=== PATIENT | female | born 1960 | race American Indian/Alaskan Native ===

== ENCOUNTER 2019-01-17 08:15 | Day surgery (SDC) | payer MEDICARE ==
[~2019-01-17 08:15] MED LIST: ceFAZolin/Water 2 GM/20 ML 2 GM/20 ML SYRINGE IV NR
[2019-01-17] MEDS ORDERED: BUPIVACAINE/PF (0.5%) 5 MG/1 ML 30 ML VIAL INFILTRATI ONE ×2 (08:27→13:18)
[2019-01-17] MEDS ORDERED: HEPARIN 10,000 UNITS/10 ML VIAL ONE (08:28)
[2019-01-17] MEDS ORDERED: LIDOCAINE 1%/EPINEPHRINE 1:100,000 VIAL (20 ML) INFILTRATI ONE (08:28)
[2019-01-17] MEDS ORDERED: SODIUM CHLORIDE 0.9% 500 ML 500 ML ONE (08:29)
[2019-01-17] MEDS ORDERED: SODIUM CHLORIDE 0.9% 1000 ML 1,000 ML IV SCH (08:47)
[2019-01-17] MEDS ORDERED: ONDANSETRON 4 MG/2 ML INJ IV PRN (08:50)
[2019-01-17] MEDS ORDERED: fentaNYL 100 MCG/2 ML INJ IV PRN (08:50)
--- NOTE | 2019-01-17 08:53 | Anesthesia Day of Surgery ---
Anesthesia Day of Surgery - Day of Surgery Patient Examined: Yes Patient H&P Reviewed: Yes Patient is NPO: Yes
--- NOTE | 2019-01-17 08:54 | Anesthesia Consultation ---
Anesthesia Consult and Med Hx Date of service: 01/17/19 - Airway Anesthetic Teeth Evaluation: Good ROM Head & Neck: Adequate Mental/Hyoid Distance: Adequate Mallampati Class: Class II Intubation Access Assessment: Good - Pre-Operative Health Status ASA Pre-Surgery Classification: ASA3 Proposed Anesthetic Plan: General - Pulmonary Hx Smoking: No Hx Sleep Apnea: No - Cardiovascular System Hx Hypertension: Yes - Central Nervous System Hx Psychiatric Problems: No - Endocrine Hx Renal Disease: Yes (DIALYSIS WED,WED,WED) Hx End Stage Renal Disease: Yes (DIALYSIS WED,WED,WED) Hx Non-Insulin Dependent Diabetes: Yes - Hematic Hx Anemia: Yes - Other Systems Hx Alcohol Use: No Hx Substance Use: No Hx Cancer: No
[2019-01-17] MEDS ORDERED: MIDAZOLAM 2 MG/2 ML INJ IV NR (09:00)
[2019-01-17] MEDS ORDERED: PROPOFOL 200 MG/20 ML VIAL IV ONE (09:39)
[2019-01-17] MEDS ORDERED: fentaNYL 100 MCG/2 ML INJ ONE (09:39)
[2019-01-17] MEDS ORDERED: MIDAZOLAM 2 MG/2 ML INJ ONE (09:39)
[2019-01-17] MEDS ORDERED: SODIUM CHLORIDE 0.9% IRR 1,000 ML BOTTLE IR ONE (10:02)
[2019-01-17] MEDS ORDERED: HEPARIN 10,000 UNIT/1 ML VIAL IV ONE ×2 (10:02)
[2019-01-17] MEDS ORDERED: HEPARIN 5,000 UNIT/1 ML VIAL ONE (10:04)
[2019-01-17] MEDS ORDERED: HEPARIN 10,000 UNIT/1 ML VIAL ONE (10:04)
--- NOTE | 2019-01-17 11:54 | Fluoroscopy Report ---
FLUOROSCOPY CENTRAL VENOUS DEVICE PLACEMENT HISTORY: Complications dialysis access, Port-A-Cath insertion FINDINGS: 29 seconds of fluoroscopy time was provided by radiology. A single fluoroscopic image of th e right chest is presented. A right IJ permacath has been inserted which terminates in the right atri um. There is no obvious pneumothorax on fluoroscopy. The right lung is well-aerated. Signer Name: David Bender Jr, MD Signed: 01/17/2019 11:49 AM Workstation Name: [id number]
[2019-01-17] MEDS ORDERED: ONDANSETRON 4 MG/2 ML INJ ONE (12:08)
[2019-01-17] MEDS ORDERED: GLYCOPYRROLATE 0.4 MG/2 ML INJ ONE (12:08)
[2019-01-17] MEDS ORDERED: SODIUM CHLORIDE 0.9% 250ML 250 ML ONE (12:16)
[2019-01-17] MEDS ORDERED: SODIUM CHLORIDE 0.9% P/F 10 ML VIAL INFILTRATI ONE (12:35)
[2019-01-17] MEDS ORDERED: rifAMPin 600 MG VIAL IV ONE (12:35)
[2019-01-17] MEDS ORDERED: LIDOCAINE MPF (2%) 20 MG/1 ML VIAL 5 ML ONE (13:10)
--- NOTE | 2019-01-17 13:35 | Short Stay Summary ---
Short Stay Documentation Date of service: 01/17/19 Narrative H&P: See H&P - History H&P: obtained from office - Allergies and Medications Current Medications: Allergies No Known Allergies Allergy (Unverified 01/16/19 11:00) Home Medications Medication Instructions Recorded Confirmed Last Taken Type Cinacalcet HCl [Sensipar] 60 mg PO DAILY 01/16/19 01/16/19 01/16/19 History Lantus VIAL 25 units SQ QHS 01/16/19 01/17/19 01/16/19 21:30 History NIFEdipine [Nifedipine ER] 60 mg PO BID 01/16/19 01/17/19 01/17/19 06:00 History Sucroferric Oxyhydroxide(Nf) 500 mg PO TID 01/16/19 01/16/19 01/16/19 History [Velphoro (Nf)] Zolpidem [Ambien] 10 mg PO HS 01/16/19 01/16/19 01/16/19 History cloNIDine [Catapres] 0.2 mg PO BID 01/16/19 01/17/19 01/17/19 06:00 History Active Medications Fentanyl (Sublimaze) 50 mcg IV Q5MIN PRN PRN Reason: Pain , Severe (7-10) Stop: 01/17/19 22:00 Cefazolin Sodium (Ancef/Sterile Water 2 Gm/20 Ml) 2 gm in 20 mls @ 80 mls/hr IV PREOP NR; Protocol Stop: 01/17/19 23:59 Sodium Chloride (Nacl 0.9% 1000 Ml) 1,000 mls @ 42 mls/hr IV DIRECT LEVI Last Admin: 01/17/19 09:05 Dose: 42 mls/hr Documented by: Midazolam HCl (Versed) 2 mg IV PREOP NR Stop: 01/17/19 23:59 Ondansetron HCl (Zofran) 4 mg IV ONCE PRN PRN Reason: Nausea And Vomiting - Brief post op/procedure progress note Date of procedure: 01/17/19 Pre-op diagnosis: Complications of Dialysis Access Post-op diagnosis: same Procedure: 1. Ultrasound-guided access right internal jugular vein 2. Placement of 23 cm Bard GlidePath Permacath 3. Radiologic Supervision with Interpretation 4. Revision of left arm arteriovenous fistula with interposition 7 mm bovine Artegraft Anesthesia: local, other (LMA) Surgeon: SALAZAR MCGRAW Estimated blood loss: other (250 ml) Pathology: list (left arm AV fistula pseudoaneurysms) Specimen disposition: to lab Condition: stable - Disposition Condition at discharge: Good Disposition: DC- TO HOME OR SELFCARE Short Stay Discharge Plan Activity: other (no heavy lifting with left arm) Wound: remove dressing (okay to remove Chandu bandage in 48 hours) Follow up with: SALAZAR MCGRAW MD [Staff Physician] - 14 Days Prescriptions: HYDROcodone/APAP 7.5-325 [[place] 7.5/325] 1 each PO Q6HR PRN #40 tablet PRN Reason: Pain
--- NOTE | 2019-01-17 13:45 | Operative Report ---
Operative Report Operative Report: Date of procedure: 01/17/2019 Pre-operative diagnosis: Complications of Dialysis Access Post-operative diagnosis: Same Procedure(s): 1. Ultrasound-Guided Access Right Internal Vein 2. Placement of 23 cm GlidePath Permacath 3. Radiologic Supervision with Interpretation 4. Revision of Left Arm Arteriovenous Fistula with Interposition 7 mm Bovine Artegraft Surgeon: Yasir Virgen MD Molecular Pathologist: None Anesthesia: Local/LMA EBL: 250 mL Counts: Correct Complications: None Condition: Stable Findings: Successful placement of right IJ permacath with distal tip in the right atrium and no evidence of pneumothorax. Palpable thrill in left arm AV access at the completion of the case. Specimen: None Indication: The patient is a 58-year-old female with a history of end-stage renal disease who was on hemodialysis through a left arm arteriovenous fistula. She had pseudoaneurysms in the access that had been expanding over time and was in need of revision. She was given the risk, benefits, and alternative procedures and consented to the procedure. Description of Procedure: The patient was brought to the slab lifting supervisor and laid in supine position and his right neck and chest were prepped and draped in normal sterile fashion. Ultrasound was used to identify the right internal jugular vein and the overlying skin and soft tissue was anesthetized with lidocaine. A small stab incision was made and then the access needle was used ultrasound guidance in the right internal jugular vein. An 035 J-wire was advanced to the central venous system under fluoroscopic guidance. The tract was serially dilated up to a 16 Telugu peel-away safety sheath and the inner cannula and wire removed. An exit site on the chest was then chosen and the presumed tunnel was anesthetized with lidocaine. A small stab incision was made on the chest and then the permacath was connected to the tunneler and pulled antegrade through the tunnel. The catheter was inserted into the safe sheath and safety sheath was pulled away. The catheter was positioned under fluoroscopy. Once in adequate position both ports were aspirated and flushed and then primed with the appropriate amount heparin. The neck incision was then closed with 4-0 Monocryl in interrupted subcuticular fashion and dressed with Dermabond. The catheters was dressed sterilely. Final fluoroscopy demonstrated the catheter was in excellent position without any evidence of pneumothorax. At this point the sterile field was broken and the patient's left arm was prepped and draped in normal sterile fashion. A longitudinal incision was created on the medial aspect of the fistula and carried down to the fistula using sharp dissection. The fissure was dissected out circumferentially to include the arterial inflow of the fistula as well as the pseudoaneurysm near the venous outflow of the fistula. The fistula was quite redundant so the plan was to resect the redundant portion of the fistula and create an end-to-end anastomosis after removing the pseudoaneurysms. I clamped the arterial inflow as well as the venous outflow portion of the fistula using angled DeBakey clamps and resected the pseudoaneurysms. I created an end-to-end anastomosis using 2 5-0 Prolenes in running fashion. After releasing the clamps was a palpable thrill in the fistula however there was still a dilated portion of the fistula within the midportion and the plan was to resect a portion of the fistula to reduce the size however while manipulating the fistula the arterial inflow of the fistula tore leaving a stump for decided that given the poor integrity of the fistula the patient will be better served with an interposition graft. I resected the remainder of the dilated portion of the fistula leave in a healthy segment of fistula at the venous outflow. I used a Ailyn Wood tunneler to tunnel lateral to the incision and then pulled a 7 mm bovine Artegraft through the tunnel. I beveled the end and then created an end-to-end anastomosis between the graft and the stump of the arterial inflow of the fistula using a 6-0 Prolene in running fashion. After creating the anastomosis I clamped the venous outflow of the graft and released the clamp on the arterial inflow. Hemostasis on the graft was achieved with quick clot. I then cut the graft to length and beveled the end and created an end-to-end anastomosis between the venous outflow of the graft and the venous outflow of the fistula using a 6-0 Prolene in running fashion. Prior to completing the anastomosis I flashed the arterial inflow the graft as well as the venous outflow of the graft and then flushed the graft and the fistula with heparinized saline. I completed the anastomosis and released all clamps allow flow to the fistula which had a palpable thrill. Hemostasis on the anastomosis was achieved with quick clot. Hemostasis within the wound was achieved with a combination of Gelfoam and Luly. Once hemostasis was achieved though incision was anesthetized with 0.5% Marcaine and then closed in 2 layers using a 3-0 Vicryl in a running fashion in the deep dermal layer and a 4-0 Monocryl in running fashion subcuticular layer and then dressed with Dermabond. I then placed a Telfa over the incision and then wrapped it with a 4 inch Chandu bandage to apply light pressure to reduce the chances of developing a hematoma. The patient tolerated the procedure well, all sponge needle and instrument counts were correct, the patient was taken to recovery in stable condition.
[2019-01-17 14:39] VITALS: BP 175/84
--- NOTE | 2019-01-17 22:40 | Post Anesthesia Evaluation ---
- Post Anesthesia Evaluation Patient Participated: Yes Airway Patent: Yes Stable Respiratory Function: Yes Nausea/Vomiting: No Temp > 96.8F: Yes Pain Manageable: Yes Adequeate Hydration: Yes Anesthesia Complications: No Block Receding Appropriately: Not Applicable Patient on Ventilator: No
== END 2019-01-17 08:16 | disposition home or self-care (01) ==
LOC: OR 08:15
PROVIDERS: ATTEND Surgery Vascular Surgery
DX: T82.590A Other mechanical complication of surgically created arteriovenous fistula, initial encounter (principal); I12.0 Hypertensive chronic kidney disease with stage 5 chronic kidney disease or end stage renal disease; N18.6 End stage renal disease; E11.22 Type 2 diabetes mellitus with diabetic chronic kidney disease; E11.39 Type 2 diabetes mellitus with other diabetic ophthalmic complication; H40.9 Unspecified glaucoma; E78.00 Pure hypercholesterolemia, unspecified; Z90.710 Acquired absence of both cervix and uterus; Z79.899 Other long term (current) drug therapy; Z99.2 Dependence on renal dialysis; Z98.890 Other specified postprocedural states; Z87.440 Personal history of urinary (tract) infections; Z86.2 Personal history of diseases of the blood and blood-forming organs and certain disorders involving the immune mechanism; Y83.8 Other surgical procedures as the cause of abnormal reaction of the patient, or of later complication, without mention of misadventure at the time of the procedure; Y92.89 Other specified places as the place of occurrence of the external cause
CPT/HCPCS: 36558; 36832; 77001; 82803; 82962; 88304; C1750; C1757; C1768; C1769; J0690; J1644; J2250; J2405; J2704; J3010; J3490; J7030; J7040; J7050